=== PATIENT | female | born 1965 | race Asian ===

== ENCOUNTER → 2017-01-13 | Outpatient (CLI) | payer MEDICAID | LOC: WI 09:57 | PROVIDERS: ATTEND Family Medicine | DX: Z12.31 Encounter for screening mammogram for malignant neoplasm of breast (principal) | CPT/HCPCS: 77067; G0202 ==

== ENCOUNTER → 2018-01-21 | Outpatient (CLI) | payer MEDICAID ==
--- NOTE | 2018-01-21 14:04 | RADIOLOGY REPORT (SQ) ---
EXAM DESCRIPTION: L SPINE WHOLE COMPLETED DATE/TIME: 01/21/2018 1:29 pm REASON FOR STUDY: LOW BACK PAIN (M54.5) Z12.31 ENCNTR SCREEN MAMMOGRAM FOR MALIGNANT NEOPLASM OF BR E M54.5 LOW BACK PAIN COMPARISON: Lumbar spine five views 10/28/2011 NUMBER OF VIEWS: Five views including obliques. TECHNIQUE: AP, lateral, oblique, and sacral radiographic images acquired of the lumbar spine. LIMITATIONS: None. FINDINGS: MINERALIZATION: Normal. SEGMENTATION: Normal. No transitional anatomy. ALIGNMENT: Normal. VERTEBRAE: Maintained height. No fracture or worrisome bone lesion. DISCS: Mild disc space loss of height at L4-5 POSTERIOR ELEMENTS: Pedicles and facets are intact. No pars defect or posterior arch defects. Mild bilateral facet arthropathy at L3-4, L4-5, and L5-S1 HARDWARE: None in the spine. PARASPINAL SOFT TISSUES: Normal. PELVIS: Not in the field of view. SI joints unremarkable OTHER: No other significant finding. IMPRESSION: Mild lower lumbar degenerative changes TECHNICAL DOCUMENTATION: JOB ID: [id number]- All Rights Reserved Reading location - IP/workstation name: [email or web address]
--- NOTE | 2018-01-21 17:18 | WOMENS IMAGING REPORT ---
EXAM DESCRIPTION: BILAT SCREENING MAMMO W/CAD COMPLETED DATE/TIME: 01/21/2018 2:59 pm REASON FOR STUDY: SCREENING MAMMO Z12.31 ENCNTR SCREEN MAMMOGRAM FOR MALIGNANT NEOPLASM OF ANTHONY M54. 5 LOW BACK PAIN COMPARISON: Multiple since 2011 TECHNIQUE: Standard craniocaudal and mediolateral oblique views of each breast recorded using [employer] l acquisition. LIMITATIONS: None. FINDINGS: No masses, calcifications or architectural distortion. No areas of suspicion. Read with the assistance of CAD. .[facility] - R2 Cenova Version 1.3 .[facility] - R2 Cenova Version 1.3 .[facility] - R2 Cenova Version 2.4 .[facility] R2 Cenova Version 2.4 .[facility] - R2 [employer] Project Manager Version 9.2 IMPRESSION: NORMAL MAMMOGRAM. BIRADS 1. BREAST DENSITY: b. There are scattered areas of fibroglandular density. BIRAD: 1 NEGATIVE RECOMMENDATION: ROUTINE SCREENING COMMENT: The patient has been notified of the results by letter per [place] requirements. Additional no tification policies are in place for contacting patient with suspicious or incomplete findings. Quality ID #[id number]: The [employer] recommends an annual screening mammogram for women aged 40 years or over. This facility utilizes a reminder system to ensure that all patients receive reminder letters, and/or direct phone calls for appointments. This includes reminders for routine scr eening mammograms, diagnostic mammograms, or other Breast Imaging Interventions when appropriate. Th is patient will be placed in the appropriate reminder system. The [employer] (ACR) has developed recommendations for screening MRI of the breast s in certain patient populations, to be used in conjunction with mammography. Breast MRI surveillanc e may be appropriate for women with more than 20% lifetime risk of developing breast cancer as deter mined by genetic testing, significant family history of the disease, or history of mantle radiation f or Hodgkins Disease. ACR Practice Guidelines 2008. TECHNICAL DOCUMENTATION: FINDING NUMBER: (1) ASSESSMENT: (1) JOB ID: [id number] [employer]- All Rights Reserved Reading location - IP/workstation name: [facility]
== END ==
LOC: WI 10:25
PROVIDERS: ATTEND Family Medicine
DX: Z12.31 Encounter for screening mammogram for malignant neoplasm of breast (principal); M54.5 Low back pain
CPT/HCPCS: 72110; 77067

== ENCOUNTER → 2018-01-30 | Outpatient (CLI) | payer MEDICAID ==
[2018-01-30 08:48] LABS: ANION GAP 10 (5-19); BLOOD UREA NITROGEN 19 mg/dL (7-20); CALCIUM 10.1 mg/dL (8.4-10.2); CARBON DIOXIDE 30 mmol/L (22-30); CHLORIDE 103 mmol/L (98-107); CHOLESTEROL 199.49 mg/dL (0-200); GLUCOSE 103 mg/dL (75-110); POTASSIUM 4.5 mmol/L (3.6-5.0); TRIGLYCERIDES 170 mg/dL (<150)
[2018-01-30 08:59] LABS: DIRECT LDL 124 mg/dL (<100)
== END ==
LOC: LAB 08:08
PROVIDERS: ATTEND Family Medicine
DX: E03.9 Hypothyroidism, unspecified (principal); E78.2 Mixed hyperlipidemia; I10 Essential (primary) hypertension; Z79.899 Other long term (current) drug therapy
CPT/HCPCS: 36415; 80048; 80061; 83036; 84443

== ENCOUNTER → 2019-05-18 | Outpatient (CLI) | payer MEDICAID ==
[2019-05-18 10:45] LABS: ANION GAP 10 (5-19); BLOOD UREA NITROGEN 15 mg/dL (7-20); CARBON DIOXIDE 29 mmol/L (22-30); CHLORIDE 101 mmol/L (98-107); CHOLESTEROL 161.87 mg/dL (0-200); GLUCOSE 123 mg/dL (75-110); POTASSIUM 4.9 mmol/L (3.6-5.0); TRIGLYCERIDES 128 mg/dL (<150)
[2019-05-18 10:55] LABS: DIRECT LDL 98 mg/dL (<100)
== END ==
LOC: LAB 10:00
PROVIDERS: ATTEND Family Medicine
DX: E03.9 Hypothyroidism, unspecified (principal); E78.5 Hyperlipidemia, unspecified; I10 Essential (primary) hypertension; Z79.899 Other long term (current) drug therapy
CPT/HCPCS: 36415; 80048; 80061; 83036; 84443

== ENCOUNTER 2019-07-27 08:14 | Emergency (ER) | payer SELFPAY ==
--- NOTE | 2019-07-27 08:37 | ER Document Report ---
ED General - General Chief Complaint: Nausea/Vomiting Stated Complaint: COUGH Time Seen by Provider: 07/27/19 08:22 Primary Care Provider: DU HENDERSON MD [Primary Care Provider] - Follow up in 1 week Mode of Arrival: Ambulatory Information source: Patient, Relative Notes: This 54-year-old female with a history of high blood pressure hyperlipidemia and hypothyroidism presents emergency department with complaints of cough for the past 5 days. Reports producing yellow sputum yesterday. Also complains of vomiting due to force of cough that started last night. Reports she does not feel good body aches with a sore throat for the past 5 days. Unsure of fever. Denies diarrhea. Denies pain with void denies back pain, complaints of chest pain. Reports when she takes a deep breath she coughs more. TRAVEL OUTSIDE OF THE [place] IN LAST 30 DAYS: No - HPI Onset: Other Onset/Duration: Persistent Quality of pain: Achy Severity: Severe Pain Level: 5 Associated symptoms: Body/muscle aches, Productive cough, Vomiting Exacerbated by: Denies Relieved by: Denies Similar symptoms previously: No Recently seen / treated by doctor: No - Related Data Allergies/Adverse Reactions: No Known Allergies Allergy (Verified 07/27/19 08:14) Past Medical History - General Information source: Patient Last Menstrual Period: 3 months ago - Social History Smoking Status: Unknown if Ever Smoked Cigarette use (# per day): No Frequency of alcohol use: None Drug Abuse: None Lives with: Family Family History: Reviewed & Not Pertinent, CAD Patient has suicidal ideation: No Patient has homicidal ideation: No - Past Medical History Cardiac Medical History: Reports: Hx Hypercholesterolemia, Hx Hypertension Endocrine Medical History: Reports: Hx Hypothyroidism - Immunizations Hx Diphtheria, Pertussis, Tetanus Vaccination: Yes Review of Systems - Review of Systems Notes: Review HPI for review of systems., All other systems negative Physical Exam - Vital signs Vitals: Temp Pulse Resp BP Pulse Ox 97.8 F 84 18 143/69 H 95 07/27/19 08:18 07/27/19 08:18 07/27/19 08:18 07/27/19 08:18 07/27/19 08:18 - General General appearance: Alert In distress: None - HEENT Head: Normocephalic Eyes: Normal Conjunctiva: Normal Extraocular movements intact: Yes Ears: Normal External canal: Normal Tympanic membrane: Normal Nasal: Normal Mouth/Lips: Normal Mucous membranes: Moist Pharynx: Erythema. No: Peritonsillar abscess, Tonsillar hypertrophy Neck: Normal, Supple. No: Lymphadenopathy - Respiratory Respiratory status: No respiratory distress Chest status: Nontender Breath sounds: Normal. No: Wheezing Chest palpation: Normal - Cardiovascular Rhythm: Regular Heart sounds: Normal auscultation Murmur: No Normal capillary refill: Yes - Abdominal Inspection: Normal Distension: No distension Bowel sounds: Normal Tenderness: Nontender Organomegaly: No organomegaly - Back Back: No: CVA tenderness - Extremities General upper extremity: Normal ROM General lower extremity: Normal ROM - Neurological Neuro grossly intact: Yes Cognition: Normal Orientation: AAOx4 [place] Coma Scale Eye Opening: Spontaneous [place] Coma Scale Verbal: Oriented [place] Coma Scale Motor: Obeys Commands Vane Coma Scale Total: 15 Speech: Normal Cranial nerves: Normal - Psychological Associated symptoms: Normal affect, Normal mood - Skin Skin Temperature: Warm Skin Moisture: Dry Skin Color: Normal Course - Re-evaluation Re-evalutation: 07/27/19 09:33 This 54-year-old female presents with complaints of cough for the past 5 days. Reports cough is so forceful she is been vomiting afterwards occasionally. Reports she is producing yellow sputum yesterday. Denies fever diarrhea. 07/27/19 08:25 07/27/19 08:25 MCV 92 fl (80-97) 07/27/19 08:25 MCH 31.1 pg (27.0-33.4) 07/27/19 08:25 MCHC 34.0 g/dL (32.0-36.0) 07/27/19 08:25 RDW 13.1 % (11.5-14.0) 07/27/19 08:25 Seg Neutrophils % 68.7 % (42-78) 07/27/19 08:25 Chloride 98 mmol/L (98-107) 07/27/19 08:25 Carbon Dioxide 31 mmol/L (22-30) H 07/27/19 08:25 Anion Gap 10 (5-19) 07/27/19 08:25 Est GFR ( Amer) > 60 (>60) 07/27/19 08:25 Glucose 120 mg/dL (75-110) H 07/27/19 08:25 Calcium 9.7 mg/dL (8.4-10.2) 07/27/19 08:25 Total Bilirubin 0.5 mg/dL (0.2-1.3) 07/27/19 08:25 AST 26 U/L (14-36) 07/27/19 08:25 Alkaline Phosphatase 96 U/L (38-126) 07/27/19 08:25 Total Protein 8.3 g/dL (6.3-8.2) H 07/27/19 08:25 Albumin 4.8 g/dL (3.5-5.0) 07/27/19 08:25 Urine Color YELLOW 07/27/19 09:07 Urine Appearance CLEAR 07/27/19 09:07 Urine pH 6.0 (5.0-9.0) 07/27/19 09:07 Ur Specific [place] 1.012 07/27/19 09:07 Urine Protein NEGATIVE mg/dL (NEGATIVE) 07/27/19 09:07 Urine Glucose (UA) NEGATIVE mg/dL (NEGATIVE) 07/27/19 09:07 Urine Ketones NEGATIVE mg/dL (NEGATIVE) 07/27/19 09:07 Urine Blood SMALL (NEGATIVE) H 07/27/19 09:07 Urine Nitrite NEGATIVE (NEGATIVE) 07/27/19 09:07 Ur Leukocyte Esterase LARGE (NEGATIVE) H 07/27/19 09:07 Urine WBC (Auto) 10 /HPF 07/27/19 09:07 Urine RBC (Auto) 1 /HPF 07/27/19 09:07 Chest X-Ray 07/27/19 08:28 IMPRESSION: Minimal lingular airspace disease atelectasis versus pneumonia 07/27/19 10:41 No vomiting since arrival labs unremarkable x-ray shows atelectasis versus pneumonia we will treat for pneumonia. Patient was instructed on plan of care. Instructed on throat lozenges warm salt water gargles for throat. Instructed on [employer]. She verbalized understanding to all directions. - Vital Signs Vital signs: Temp Pulse Resp BP Pulse Ox 97.7 F 85 18 127/73 H 95 07/27/19 09:45 07/27/19 09:45 07/27/19 09:45 07/27/19 09:45 07/27/19 08:18 - Laboratory Result Diagrams: 07/27/19 08:25 07/27/19 08:25 Laboratory results interpreted by me: 07/27/19 07/27/19 07/27/19 08:25 08:25 09:07 Eos % (Auto) 6.8 H Absolute Eos (auto) 0.7 H Carbon Dioxide 31 H Glucose 120 H Total Protein 8.3 H Urine Blood SMALL H Ur Leukocyte Esterase LARGE H - Diagnostic Test Radiology reviewed: Image reviewed, Reports reviewed Discharge - Discharge Clinical Impression: Cough Pneumonia Qualifiers: Pneumonia type: due to unspecified organism Laterality: unspecified laterality Lung location: unspecified part of lung Qualified Code(s): J18.9 - Pneumonia, unspecified organism Condition: Stable Disposition: HOME, SELF-CARE Instructions: Azithromycin ([facility]), Pneumonia ([facility]) Additional Instructions: *You have been evaluated for cough , pneumonia *Increase fluid intake as discussed *Take medication as prescribed *Monitor your temperature, take Tylenol as indicated *Follow up with a primary care provider within one week *Return to ED for worsening condition, changes, needs, fever Prescriptions: Azithromycin [Zithromax 250 mg Tablet] 250 mg PO ASDIR PRN #6 tablet PRN Reason: Forms: Elevated Blood Pressure Referrals: DU HENDERSON MD [Primary Care Provider] - Follow up in 1 week
[2019-07-27 08:43] LABS: ABSOLUTE BASOPHILS # (AUTO) 0.1 10^3/uL (0.0-0.2); ABSOLUTE EOSINOPHILS # (AUTO) 0.7 10^3/uL (0.0-0.6); ABSOLUTE LYMPHOCYTES (AUTO) 1.7 10^3/uL (0.5-4.7); ABSOLUTE MONOCYTES (AUTO) 0.6 10^3/uL (0.1-1.4); ABSOLUTE NEUT (AUTO) 6.6 10^3/uL (1.7-8.2); BASOPHILS % (AUTO) 0.7 % (0-2); EOSINOPHILS % (AUTO) 6.8 % (0-6); HEMATOCRIT 40.9 % (36.0-47.0); HEMOGLOBIN 13.9 g/dL (12.0-15.5); LYMPHOCYTES % (AUTO) 17.8 % (13-45); MEAN CORPUSCULAR HEMOGLOBIN 31.1 pg (27.0-33.4); MEAN CORPUSCULAR VOLUME 92 fl (80-97); PLATELET COUNT 301 10^3/uL (150-450); RED BLOOD COUNT 4.46 10^6/uL (3.72-5.28); RED CELL DISTRIBUTION WIDTH 13.1 % (11.5-14.0); SEGMENTED NEUTROPHILS % (AUTO) 68.7 % (42-78); TOTAL CELLS COUNTED % (AUTO) 100 %; WHITE BLOOD COUNT 9.6 10^3/uL (4.0-10.5)
--- NOTE | 2019-07-27 08:58 | RADIOLOGY REPORT (SQ) ---
EXAM DESCRIPTION: CHEST 2 VIEWS COMPLETED DATE/TIME: 07/27/2019 8:49 am REASON FOR STUDY: cough COMPARISON: Chest film 07/14/2013 EXAM PARAMETERS: NUMBER OF VIEWS: two views TECHNIQUE: Digital Frontal and Lateral radiographic views of the chest acquired. RADIATION DOSE: NA LIMITATIONS: none FINDINGS: LUNGS AND PLEURA: Minimal lingular airspace disease is present along the left heart border , likely atelectasis. Early or developing pneumonia could not be excluded. No pleural effusions. No pneumothorax. MEDIASTINUM AND HILAR STRUCTURES: No masses or contour abnormalities. HEART AND VASCULAR STRUCTURES: Heart normal size. No evidence for failure. BONES: No acute findings. HARDWARE: None in the chest. OTHER: No other significant finding. IMPRESSION: Minimal lingular airspace disease atelectasis versus pneumonia TECHNICAL DOCUMENTATION: JOB ID: [id number] [email or web address]- All Rights Reserved Reading location - IP/workstation name: [email or web address]
[2019-07-27 09:04] LABS: ALBUMIN 4.8 g/dL (3.5-5.0); ALKALINE PHOSPHATASE 96 U/L (38-126); ANION GAP 10 (5-19); ASPARTATE AMINO TRANSFERASE 26 U/L (14-36); BILIRUBIN,DIRECT 0.3 mg/dL (0.0-0.4); BILIRUBIN,TOTAL 0.5 mg/dL (0.2-1.3); BLOOD UREA NITROGEN 12 mg/dL (7-20); CALCIUM 9.7 mg/dL (8.4-10.2); CARBON DIOXIDE 31 mmol/L (22-30); CHLORIDE 98 mmol/L (98-107); GLUCOSE 120 mg/dL (75-110); POTASSIUM 3.8 mmol/L (3.6-5.0); TOTAL PROTEIN 8.3 g/dL (6.3-8.2)
[2019-07-27 09:27] LABS: APPEARANCE,URINE CLEAR; BILIRUBIN,URINE NEGATIVE (NEGATIVE); COLOR,URINE YELLOW; GLUCOSE, URINE NEGATIVE (NEGATIVE); KETONES,URINE NEGATIVE (NEGATIVE); LEUKOCYTE ESTERASE,URINE LARGE (NEGATIVE); NITRITE,URINE NEGATIVE (NEGATIVE); PROTEIN,URINE NEGATIVE (NEGATIVE); URINE SPECIFIC GRAVITY 1.012; UROBILINOGEN,URINE NEGATIVE mg/dL (<2.0)
[2019-07-27 09:47] VITALS: BP 127/73
== END 2019-07-27 10:12 | disposition home or self-care (01) ==
LOC: ER 08:14
DX: J18.9 Pneumonia, unspecified organism (principal); R11.2 Nausea with vomiting, unspecified; M79.10 Myalgia, unspecified site; I10 Essential (primary) hypertension; E78.5 Hyperlipidemia, unspecified; E03.9 Hypothyroidism, unspecified
CPT/HCPCS: 36415; 71046; 80053; 81001; 81025; 85025; 87070; 87880; 99283

== ENCOUNTER → 2019-08-19 | Outpatient (CLI) | payer OTHER ==
--- NOTE | 2019-08-20 12:21 | WOMENS IMAGING REPORT ---
EXAM DESCRIPTION: PINK WARRIOR BILATERAL SCREEN COMPLETED DATE/TIME: 08/19/2019 2:14 pm REASON FOR STUDY: PINK PINK PINK Z12.31 SCREENING MAMMO PINK PINK PINK Z12.31 ENCNTR SCREEN MAMMOGR AM FOR MALIGNANT NEOPLASM OF ANTHONY COMPARISON: Multiple since 2011 EXAM PARAMETERS: Standard craniocaudal and mediolateral oblique views of each breast recorded using digital acquisition. Read with the assistance of CAD. .[facility] - [employer] Body Engineer Version 9.2 LIMITATIONS: None. FINDINGS: No suspicious masses, suspicious calcifications or architectural distortion. No areas of c oncern. IMPRESSION: Negative MAMMOGRAM. BIRADS 1 BREAST DENSITY: b. There are scattered areas of fibroglandular density. BIRAD: ASSESSMENT: 1 NEGATIVE RECOMMENDATION: ROUTINE SCREENING COMMENT: The patient has been notified of the results by letter per MQSA requirements. Additional no tification policies are in place for contacting patient with suspicious or incomplete findings. Quality ID #[id number]: The [employer] [employer] recommends an annual screening mammogram for women aged 40 years or over. This facility utilizes a reminder system to ensure that all patients receive reminder letters, and/or direct phone calls for appointments. This includes reminders for routine scr eening mammograms, diagnostic mammograms, or other Breast Imaging Interventions when appropriate. Th is patient will be placed in the appropriate reminder system. TECHNICAL DOCUMENTATION: FINDING NUMBER: (1) ASSESSMENT: (1) JOB ID: [id number] [employer]- All Rights Reserved Reading location - IP/workstation name: [email or web address]
== END ==
LOC: WI 13:45
PROVIDERS: ATTEND Family Medicine
DX: Z12.31 Encounter for screening mammogram for malignant neoplasm of breast (principal)
CPT/HCPCS: 77067

== ENCOUNTER 2019-12-12 13:47 | Emergency (ER) | payer OTHER ==
[2019-12-12] MEDS ORDERED: NORMAL SALINE 1000 ML 1,000 ML IV ONE (13:59)
--- NOTE | 2019-12-12 14:01 | ER Document Report ---
ED Medical Screen (RME) - General Chief Complaint: Cold Symptoms Stated Complaint: HEADACHE Time Seen by Provider: 12/12/19 13:52 Primary Care Provider: DU HENDERSON MD [Primary Care Provider] - Follow up as needed Information source: Patient Notes: Patient presents complaining of body aches, sore throat and headache for the past 4 days. Patient has had nausea and vomiting off and on. Patient denies any diarrhea. Patient states that she has numbness to the fingers of bilateral hands today. Patient reports history of hypertension, dyslipidemia, anxiety. I have greeted and performed a rapid initial assessment of this patient. A comprehensive ED assessment and evaluation of the patient, analysis of test results and completion of the medical decision making process will be conducted by additional ED providers. TRAVEL OUTSIDE OF THE [place] IN LAST 30 DAYS: No - Related Data Allergies/Adverse Reactions: No Known Allergies Allergy (Verified 12/12/19 13:49) Past Medical History - Past Medical History Cardiac Medical History: Reports: Hx Hypercholesterolemia, Hx Hypertension Endocrine Medical History: Reports: Hx Hypothyroidism - Immunizations Hx Diphtheria, Pertussis, Tetanus Vaccination: Yes Physical Exam - Vital signs Vitals: Temp Pulse Resp BP Pulse Ox 98.0 F 66 16 131/75 H 100 12/12/19 13:51 12/12/19 13:51 12/12/19 13:51 12/12/19 13:51 12/12/19 13:51 - General General appearance: Appears well, Alert In distress: None - Neurological [place] Coma Scale Eye Opening: Spontaneous [place] Coma Scale Verbal: Oriented Vane Coma Scale Motor: Obeys Commands Vane Coma Scale Total: 15 Course - Vital Signs Vital signs: Temp Pulse Resp BP Pulse Ox 98.0 F 66 16 131/75 H 100 12/12/19 13:51 12/12/19 13:51 12/12/19 13:51 12/12/19 13:51 12/12/19 13:51 Doctor's Discharge - Discharge Referrals: DU HENDERSON MD [Primary Care Provider] - Follow up as needed
[2019-12-12 14:22] LABS: ABSOLUTE BASOPHILS # (AUTO) 0.1 10^3/uL (0.0-0.2); ABSOLUTE EOSINOPHILS # (AUTO) 0.5 10^3/uL (0.0-0.6); ABSOLUTE LYMPHOCYTES (AUTO) 2.2 10^3/uL (0.5-4.7); ABSOLUTE MONOCYTES (AUTO) 0.4 10^3/uL (0.1-1.4); ABSOLUTE NEUT (AUTO) 3.6 10^3/uL (1.7-8.2); BASOPHILS % (AUTO) 1.1 % (0-2); EOSINOPHILS % (AUTO) 6.6 % (0-6); HEMATOCRIT 40.1 % (36.0-47.0); HEMOGLOBIN 13.6 g/dL (12.0-15.5); LYMPHOCYTES % (AUTO) 32.8 % (13-45); MEAN CORPUSCULAR HEMOGLOBIN 31.7 pg (27.0-33.4); MEAN CORPUSCULAR VOLUME 93 fl (80-97); MONOCYTES % (AUTO) 6.1 % (3-13); PLATELET COUNT 315 10^3/uL (150-450); RED CELL DISTRIBUTION WIDTH 12.9 % (11.5-14.0); SEGMENTED NEUTROPHILS % (AUTO) 53.4 % (42-78); TOTAL CELLS COUNTED % (AUTO) 100 %; WHITE BLOOD COUNT 6.8 10^3/uL (4.0-10.5)
[2019-12-12] MEDS ORDERED: KETOROLAC TROMETHAMINE INJ/PF 30 MG/1 ML SDV IV ONE (14:36)
[2019-12-12 14:40] LABS: ALBUMIN 4.5 g/dL (3.5-5.0); ALKALINE PHOSPHATASE 77 U/L (38-126); ANION GAP 9 (5-19); ASPARTATE AMINO TRANSFERASE 27 U/L (14-36); BILIRUBIN,DIRECT 0.3 mg/dL (0.0-0.4); BILIRUBIN,TOTAL 0.4 mg/dL (0.2-1.3); BLOOD UREA NITROGEN 12 mg/dL (7-20); CALCIUM 9.6 mg/dL (8.4-10.2); CARBON DIOXIDE 30 mmol/L (22-30); CHLORIDE 102 mmol/L (98-107); CREATINE KINASE 98 U/L (30-135); GLUCOSE 98 mg/dL (75-110); POTASSIUM 3.7 mmol/L (3.6-5.0)
--- NOTE | 2019-12-12 14:44 | ER Document Report ---
ED General - General Chief Complaint: Cold Symptoms Stated Complaint: HEADACHE Time Seen by Provider: 12/12/19 13:52 Primary Care Provider: DU HENDERSON MD [Primary Care Provider] - Follow up as needed Notes: CHIEF COMPLAINT: Flu symptoms HPI: 54-year-old female presenting to the emergency department complaining of flu symptoms over the last 4 days. Patient states she had 1 day and evening of vomiting where she threw up 2 or 3 times. Has not had vomiting since then. Denies abdominal pain. Denies dysuria. Has a slight dry cough. No shortness of breath no chest pain. No headache. Mild sore throat and nasal congestion. Patient states she started having numbness tingling in both hands yesterday which concerned her and brought her to the emergency department. Patient has been able to tolerate oral fluids today. ROS: See HPI - all other systems were reviewed and are otherwise negative Constitutional: no fever Eyes: no drainage, no blurred vision ENT: + runny nose, + sore throat Cardiovascular: no chest pain Resp: no SOB, + cough GI: + vomiting, no diarrhea, no abdominal pain : no dysuria Integumentary: no rash Allergy: no hives Musculoskeletal: no extremity pain or swelling Neurological: + numbness/tingling, no weakness MEDICATIONS: I agree with the patient medications as charted by the RN. ALLERGIES: I agree with the allergies as charted by the RN. PAST MEDICAL HISTORY/PAST SURGICAL HISTORY: Reviewed and agree as charted by RN. SOCIAL HISTORY: Reviewed and agree as charted by RN. FAMILY HISTORY: No significant familial comorbid conditions directly related to patient complaint EXAM: Reviewed vital signs as charted by RN. CONSTITUTIONAL: Alert and oriented and responds appropriately to questions. Well-appearing; well-nourished. No acute distress HEAD: Normocephalic; atraumatic EYES: PERRL; Conjunctivae clear, sclerae non-icteric ENT: normal nose; no rhinorrhea; moist mucous membranes; pharynx without lesions noted, no uvula edema or deviation, no tonsillar hypertrophy, phonation normal NECK: Supple without meningismus; non-tender; no cervical lymphadenopathy, no masses CARD: RRR; no murmurs, no clicks, no rubs, no gallops; symmetric distal pulses RESP: Normal chest excursion without splinting or tachypnea; breath sounds clear and equal bilaterally; no wheezes, no rhonchi, no rales, pulse oximetry 100% on room air not hypoxic ABD/GI: Normal bowel sounds; non-distended; soft, non-tender, no rebound, no guarding; no palpable organomegaly or masses. BACK: The back appears normal and is non-tender to palpation, there is no CVA tenderness EXT: Normal ROM in all joints; non-tender to palpation; no cyanosis, no effusions, no edema SKIN: Normal color for age and race; warm; dry; good turgor; no acute lesions noted NEURO: Moves all extremities equally; Motor and sensory function intact PSYCH: The patient's mood and manner are appropriate. Grooming and personal hygiene are appropriate. MDM: 54-year-old female presenting for flulike symptoms over the last 4 days. Initially some vomiting no vomiting in the last 3 days. No abdominal pain on exam. Not hypoxic. Not significantly tachycardic. Subjective tingling in bilateral fingers. No chest pain to suggest ACS. Initial screening labs and hydration ordered through triage process. Will add chest x-ray given the dry cough to evaluate for infiltrate. I suspect this is likely a viral syndrome. TRAVEL OUTSIDE OF THE [place] IN LAST 30 DAYS: No - Related Data Allergies/Adverse Reactions: No Known Allergies Allergy (Verified 12/12/19 13:49) Past Medical History - General Information source: Patient - Social History Smoking Status: Never Smoker Family History: Reviewed & Not Pertinent, CAD Patient has suicidal ideation: No Patient has homicidal ideation: No - Past Medical History Cardiac Medical History: Reports: Hx Hypercholesterolemia, Hx Hypertension Endocrine Medical History: Reports: Hx Hypothyroidism - Immunizations Hx Diphtheria, Pertussis, Tetanus Vaccination: Yes Physical Exam - Vital signs Vitals: Temp Pulse Resp BP Pulse Ox 98.0 F 66 16 131/75 H 100 12/12/19 13:51 12/12/19 13:51 12/12/19 13:51 12/12/19 13:51 12/12/19 13:51 Course - Re-evaluation Re-evalutation: 12/12/19 15:53 Lab work did not show acute emergent abnormalities. Chest x-ray does not show evidence of pneumonia on my review. Patient still complaining of some numbness in the bilateral hands. She has no chest pain or shortness of breath suggesting ACS or endocarditis or myocarditis. This may be radicular or simply myalgia from the viral process that she has ongoing at this time. Patient will follow- up closely with her primary care provider in 1 to 2 days. - Vital Signs Vital signs: Temp Pulse Resp BP Pulse Ox 98.0 F 66 16 131/75 H 100 12/12/19 13:51 12/12/19 13:51 12/12/19 13:51 12/12/19 13:51 12/12/19 13:51 - Laboratory Result Diagrams: 12/12/19 14:02 12/12/19 14:02 Laboratory results interpreted by me: 12/12/19 14:02 Eos % (Auto) 6.6 H Discharge - Discharge Clinical Impression: Influenza-like illness, Numbness and tingling in both hands Condition: Stable Disposition: HOME, SELF-CARE Additional Instructions: Continue to hydrate well at home. Continue Motrin Tylenol for body ache. Lab work and imaging studies today did not show acute emergent abnormalities. Follow-up closely with your primary care provider in 1 to 2 days for recheck and reevaluation of symptoms Referrals: DU HENDERSON MD [Primary Care Provider] - Follow up as needed
--- NOTE | 2019-12-12 15:42 | RADIOLOGY REPORT (SQ) ---
EXAM DESCRIPTION: CHEST 2 VIEWS COMPLETED DATE/TIME: 12/12/2019 3:31 pm REASON FOR STUDY: cough COMPARISON: Chest x-ray 07/27/2019, 07/14/2013. EXAM PARAMETERS: NUMBER OF VIEWS: two views TECHNIQUE: Digital Frontal and Lateral radiographic views of the chest acquired. RADIATION DOSE: NA LIMITATIONS: none FINDINGS: LUNGS AND PLEURA: No consolidation, pneumothorax or pleural effusion. MEDIASTINUM AND HILAR STRUCTURES: No masses or contour abnormalities. HEART AND VASCULAR STRUCTURES: Heart normal size. No evidence for failure. BONES: No acute findings. HARDWARE: None in the chest. IMPRESSION: NO ACUTE RADIOGRAPHIC FINDING IN THE CHEST. TECHNICAL DOCUMENTATION: JOB ID: [id number] [employer]- All Rights Reserved Reading location - IP/workstation name: [email or web address]
[2019-12-12 16:27] VITALS: BP 132/66
== END 2019-12-12 16:26 | disposition home or self-care (01) ==
LOC: ER 13:47
DX: J11.1 Influenza due to unidentified influenza virus with other respiratory manifestations (principal); R20.2 Paresthesia of skin; R20.0 Anesthesia of skin; R05 Cough; J02.9 Acute pharyngitis, unspecified; R09.81 Nasal congestion; I10 Essential (primary) hypertension
CPT/HCPCS: 99283; 96361; 96374; 36415; 87070; 87880; 82550; 83690; 85025; 87077; 80053; 71046; J1885; J7030

== ENCOUNTER 2020-08-15 13:05 | Emergency (ER) | payer SELFPAY ==
[2020-08-15 13:22] VITALS: BP 151/74
[2020-08-15] MEDS ORDERED: ALPRAZOLAM 0.5 MG TABLET PO ONE (15:10)
--- NOTE | 2020-08-15 15:20 | ER Document Report ---
HPI - HPI Time Seen by Provider: 08/15/20 14:59 Pain Level: Denies Notes: 55-year-old female presents to the emergency room for a generic Xanax refill because she ran out of insurance and [facility] for her. Patient has a prescription for 180 mg tablets a month, she usually fills every other month. MEDICATIONS: I agree with the patient medications as charted by the RN. ALLERGIES: I agree with the allergies as charted by the RN. PAST MEDICAL HISTORY/PAST SURGICAL HISTORY: Reviewed and agree as charted by RN. SOCIAL HISTORY: Reviewed and agree as charted by RN. FAMILY HISTORY: No significant familial comorbid conditions directly related to patient complaint EXAM: Reviewed vital signs as charted by RN. REVIEW OF SYSTEMS:reviewed vital signs by RN CONSTITUTIONAL : Denies fever, chills, or sweats. Denies recent illness. EENT: Denies eye, ear, throat, or mouth pain or symptoms. Denies nasal or sinus congestion or discharge. Denies throat, tongue, or mouth swelling or difficulty swallowing. CARDIOVASCULAR: Denies chest pain. Denies palpitations or racing or irregular heart beat. Denies ankle edema. RESPIRATORY: Denies cough, cold, or chest congestion. Denies shortness of breath, difficulty breathing, or wheezing. GASTROINTESTINAL: Denies abdominal pain or distention. Denies nausea, vomiting, or diarrhea. Denies blood in vomitus, stools, or per rectum. Denies black, tarry stools. Denies constipation. GENITOURINARY: Denies difficulty urinating, painful urination, burning, frequency, blood in urine, or discharge. FEMALE GENITOURINARY: Denies vaginal bleeding, heavy or abnormal periods, irre gular periods. Denies vaginal discharge or odor. MUSCULOSKELETAL: Denies back or neck pain or stiffness. Denies joint pain or swelling. SKIN: Denies rash, lesions or sores. HEMATOLOGIC : Denies easy bruising or bleeding. LYMPHATIC: Denies swollen, enlarged glands. NEUROLOGICAL: Denies confusion or altered mental status. Denies passing out or loss of consciousness. Denies dizziness or lightheadedness. Denies headache. Denies weakness or paralysis or loss of use of either side. Denies problems with gait or speech. Denies sensory loss, numbness, or tingling. Denies seizures. PSYCHIATRIC: Denies anxiety or stress. Denies depression, suicidal ideation, or homicidal ideation. ALL OTHER SYSTEMS REVIEWED AND NEGATIVE. PHYSICAL EXAMINATION: GENERAL: Well-appearing, well-nourished and in no acute distress. HEAD: Atraumatic, normocephalic. EYES: Pupils equal round and reactive to light, extraocular movements intact, conjunctiva are normal. ENT: Nares patent, oropharynx clear without exudates. Moist mucous membranes. NECK: Normal range of motion, supple without lymphadenopathy LUNGS: Breath sounds clear to auscultation bilaterally and equal. No wheezes rales or rhonchi. HEART: Regular rate and rhythm without murmurs ABDOMEN: Soft, nontender, nondistended abdomen. No guarding, no rebound. No masses appreciated. Female : deferred Musculoskeletal: Normal range of motion, no pitting or edema. No cyanosis. NEUROLOGICAL: Cranial nerves grossly intact. Normal speech, normal gait. Normal sensory, motor exams PSYCH: Normal mood, normal affect. SKIN: Warm, Dry, normal turgor, no rashes or lesions noted. Dictation was performed using [employer] voice recognition software - REPRODUCTIVE Reproductive: DENIES: : Past Medical History - General Information source: Patient - Social History Smoking Status: Never Smoker Frequency of alcohol use: None Drug Abuse: None Family History: Reviewed & Not Pertinent, CAD - Past Medical History Cardiac Medical History: Reports: Hx Hypercholesterolemia, Hx Hypertension Endocrine Medical History: Reports: Hx Hypothyroidism - Immunizations Hx Diphtheria, Pertussis, Tetanus Vaccination: Yes Vertical Provider Document - CONSTITUTIONAL Agree With Documented VS: Yes Exam Limitations: No Limitations General Appearance: WD/WN - INFECTION CONTROL TRAVEL OUTSIDE OF THE [place] IN LAST 30 DAYS: No Course - Re-evaluation Re-evalutation: 08/15/20 19:16 Afebrile vital stable no distress. Nurses notes reviewed. Discussed with [facility] about generic Xanax, she states that [facility]odiazepines. Discussed with patient that I cannot prescribe her the quantity of Xanax that she would like we can start her on BuSpar though to help with benzodiazepine withdrawal as as well as starting her on Vistaril to manage her anxiety. We did give her information to [facility] without the information for number and address for her to contact them as well as the hours in the phone number. Patient was agreeable with this plan of care and verbalized understanding of this plan of care. Discussed with patient that if she starts to have any benzodiazepine withdrawal is to return to the emergency room. After performing a Medical Screening Examination, I estimate there is LOW risk for RUPTURED ESOPHAGUS, PNEUMOTHORAX, PULMONARY EMBOLISM, ACUTE CORONARY SYNDROME, OR THORACIC AORTIC DISSECTION, thus I consider the discharge disposition reasonable. I have reevaluated this patient multiple times and no significant life threatening changes are noted. The patient and I have discussed the diagnosis and risks, and we agree with discharging home with close follow-up. We also discussed returning to the Emergency Department immediately if new or worsening symptoms occur. We have discussed the symptoms which are most concerning (e.g., bloody sputum, worsening pain or shortness of breath) that necessitate immediate return. - Vital Signs Vital signs: Temp Pulse Resp BP Pulse Ox 97.9 F 78 16 151/74 H 97 08/15/20 13:20 08/15/20 13:20 08/15/20 13:20 08/15/20 13:20 08/15/20 13:20 Discharge - Discharge Clinical Impression: Anxiety Condition: Stable Disposition: HOME, SELF-CARE Instructions: Anxiety ([facility]) Additional Instructions: [facility] with [facility] for further evaluation of your need for Xanax. Please take Vistaril and please start taking the BuSpar to prevent any benzodiazepine withdrawals. You were given information about [facility] from the mental health team. Please return to the emergency room if you experience any benzodiazepine withdrawals. Return immediately for any new or worsening symptoms. Follow up with primary care provider, call tomorrow to make followup appointment. Prescriptions: Hydroxyzine Pamoate [Vistaril] 50 mg PO Q6HP PRN #30 capsule PRN Reason: Buspirone HCl [Buspar 10 mg Tablet] 5 mg PO BID #30 tablet Referrals: VIRGILIO ROLLINS MD [ACTIVE STAFF] - Follow up as needed DU HENDERSON MD [Primary Care Provider] - Follow up as needed [facility] [Provider Group] - Follow up as needed [facility] [Outside] - Follow up as needed
== END 2020-08-15 16:12 | disposition home or self-care (01) ==
LOC: ER 13:05
DX: F41.9 Anxiety disorder, unspecified (principal); E78.00 Pure hypercholesterolemia, unspecified; I10 Essential (primary) hypertension
CPT/HCPCS: 99283

== ENCOUNTER 2020-08-18 01:39 | Emergency (ER) | payer SELFPAY ==
[2020-08-18 03:40] LABS: ABSOLUTE BASOPHILS # (AUTO) 0.1 10^3/uL (0.0-0.2); ABSOLUTE EOSINOPHILS # (AUTO) 0.2 10^3/uL (0.0-0.6); ABSOLUTE LYMPHOCYTES (AUTO) 2.3 10^3/uL (0.5-4.7); ABSOLUTE MONOCYTES (AUTO) 0.5 10^3/uL (0.1-1.4); ABSOLUTE NEUT (AUTO) 6.7 10^3/uL (1.7-8.2); EOSINOPHILS % (AUTO) 2.2 % (0-6); HEMATOCRIT 42.2 % (36.0-47.0); HEMOGLOBIN 14.6 g/dL (12.0-15.5); LYMPHOCYTES % (AUTO) 23.1 % (13-45); MEAN CORPUSCULAR HEMOGLOBIN 31.8 pg (27.0-33.4); MEAN CORPUSCULAR HGB CONC 34.6 g/dL (32.0-36.0); MEAN CORPUSCULAR VOLUME 92 fl (80-97); PLATELET COUNT 358 10^3/uL (150-450); RED BLOOD COUNT 4.59 10^6/uL (3.72-5.28); RED CELL DISTRIBUTION WIDTH 13.1 % (11.5-14.0); SEGMENTED NEUTROPHILS % (AUTO) 68.7 % (42-78); TOTAL CELLS COUNTED % (AUTO) 100 %; WHITE BLOOD COUNT 9.8 10^3/uL (4.0-10.5)
[2020-08-18 04:08] LABS: ALKALINE PHOSPHATASE 92 U/L (38-126); ANION GAP 13 (5-19); ASPARTATE AMINO TRANSFERASE 30 U/L (14-36); BILIRUBIN,DIRECT 0.2 mg/dL (0.0-0.4); BILIRUBIN,TOTAL 0.6 mg/dL (0.2-1.3); BLOOD UREA NITROGEN 13 mg/dL (7-20); CALCIUM 9.9 mg/dL (8.4-10.2); CARBON DIOXIDE 24 mmol/L (22-30); CHLORIDE 102 mmol/L (98-107); CREATINE KINASE 81 U/L (30-135); GLUCOSE 138 mg/dL (75-110); POTASSIUM 4.2 mmol/L (3.6-5.0); TOTAL PROTEIN 8.5 g/dL (6.3-8.2)
--- NOTE | 2020-08-18 04:17 | RADIOLOGY REPORT (SQ) ---
EXAM DESCRIPTION: XR CHEST 2 VIEWS COMPLETED DATE/TME: 08/18/2020 00:00 CLINICAL HISTORY: 55 years, Female, chest pain COMPARISON: 12/12/2019 NUMBER OF VIEWS: Two TECHNIQUE: Two views of the chest LIMITATIONS: None. FINDINGS: The lungs are clear. The heart is normal in size. No pneumothorax or pleural effusion. No acute fracture. IMPRESSION: No acute cardiopulmonary abnormality. copyright 2010 [employer]- All Rights Reserved
[2020-08-18 04:20] LABS: CREATINE KINASE MB 0.25 ng/mL (<4.55)
[2020-08-18 04:21] LABS: TROPONIN I < 0.012 ng/mL
--- NOTE | 2020-08-18 08:18 | ER Document Report ---
ED General - General Chief Complaint: Anxiety Stated Complaint: CHEST TIGHTNESS LEFT ARM TINGLING Time Seen by Provider: 08/18/20 07:52 TRAVEL OUTSIDE OF THE [place] IN LAST 30 DAYS: No - HPI Notes: Chief complaint: Anxiety and chest tightness History of present illness: 55-year-old female presents for evaluation of recurrent episodes of anxiety and chest tightness over the past 2 weeks. Patient had been previously followed by Dr. Barney and apparently was on Xanax long-term for anxiety more than several years. She was apparently dismissed from that practice for reasons which are unclear and subsequently got an appointment at [facility]. They were unwilling to refill her Xanax so she is been out of this medicine for about 2 weeks. She was seen here 3 days ago by midlevel provider requesting Xanax. They chose not to honor this request and gave her a prescription for BuSpar and hydroxyzine. She says these medicines are not helping. She states now that she is having recurrent episodes of what she perceives to be panic attacks similar to what she had prior to initiation of treatment with Xanax. She describes momentary episodes of vague central chest tightness without radiation. This is nonexertional. No associated nausea, vomiting or diaphoresis. She has no known history of cardiac disease. Patient denies any abuse of drugs or alcohol. She denies any suicidal/homicidal ideation. She denies any auditory or visual hallucinations. Family history is positive for CAD. Patient has a history of hypertension and is taking combination hydrochlorothiazide lisinopril. She also has a history of hypothyroidism and is taking an unknown dose of Synthroid. She has a history of hyperlipidemia. She is a non-smoker. HEART Score: HISTORY 0 ECG 0 AGE 1 RISK FACTORS 1 TROPONIN 0 TOTAL: 2 If HEART score is < or = 3 AND both tronponin measurments are normal, the 30 day risk of a major adverse cardiac event (all-cause mortality, myocardia infarction or need for coronary revscularization) is < 1% (Sensitivity 100%, NPV 100%). - Related Data Allergies/Adverse Reactions: No Known Allergies Allergy (Verified 12/12/19 13:49) Home Medications: hydroxyzine, buspar, lisinopril/hctz Past Medical History - General Information source: Patient, Relative - Social History Smoking Status: Never Smoker Frequency of alcohol use: None Drug Abuse: None Family History: Reviewed & Not Pertinent, CAD - Past Medical History Cardiac Medical History: Reports: Hx Hypercholesterolemia, Hx Hypertension Denies: Hx Coronary Artery Disease, Hx DVT, Hx Heart Attack, Hx Pulmonary Embolism Endocrine Medical History: Reports: Hx Hypothyroidism Psychiatric Medical History: Reports: Hx Anxiety Past Surgical History: Reports: None - Immunizations Hx Diphtheria, Pertussis, Tetanus Vaccination: Yes Review of Systems - Review of Systems Notes: Constitutional: Negative for fever. HENT: Negative for sore throat. Eyes: Negative for visual changes. Cardiovascular: As per HPI. Respiratory: Negative for shortness of breath. Gastrointestinal: Negative for abdominal pain, vomiting or diarrhea. Genitourinary: Negative for dysuria. Musculoskeletal: Negative for back pain. Skin: Negative for rash. Neurological: Negative for headaches, weakness or numbness. 10 point ROS negative except as marked above and in HPI. Physical Exam - Vital signs Vitals: Temp Pulse Resp BP Pulse Ox 97.9 F 90 16 176/81 H 98 08/18/20 01:44 08/18/20 01:44 08/18/20 01:44 08/18/20 01:44 08/18/20 01:44 - Notes Notes: GENERAL: Slender female of approximately stated age appearing in no acute distress. SKIN: Good turgor no rashes. HEAD: Normocephalic atraumatic. EYES: PERRLA. EOMI. Conjunctivae and sclerae clear. EARS: CANALS AND TMS CLEAR. NOSE: CLEAR. MOUTH: Moist mucosa. Good dentition. No stridor or edema. No drooling. NECK: Supple. No masses or thyromegaly. No adenopathy. Carotids 2+ without bruits. No JVD. BACK: Symmetrical without tenderness. CHEST: Respirations unlabored. Breath sounds clear and symmetrical. HEART: Regular rhythm. No murmur gallop or rub. ABDOMEN: Soft nontender without masses, organomegaly or rebound. Bowel sounds normally active. No bruits. GENITALIA: Deferred. EXTREMITIES: No edema. No calf tenderness. Cap refill less than 1.5 seconds. Dorsalis pedis and posterior tibial pulses 3+ and symmetrical. NEUROLOGICAL: GCS 15. Alert and oriented x3. Normal gait. Fluent speech. Cranial nerves II through XII intact. Sensorimotor and cerebellar normal. Normal tone. PSYCHIATRIC: Slightly anxious. Course - Re-evaluation Re-evalutation: 08/18/20 11:17 Troponin x2 3 hours apart negative. No acute changes on EKG. Heart score is less than 3. Normal TSH. Patient has recently abruptly stopped Xanax which she has been on for years. Her current symptoms sound like combination of panic attacks and benzodiazepine withdrawal. I am going to write Ativan for the patient so she can see her primary care physician. Findings, clinical impression and plan of treatment have been discussed with patient/family. Understanding of current findings and recommendations has been acknowledged by them and there is agreement regarding disposition and follow-up. - Vital Signs Vital signs: Temp Pulse Resp BP Pulse Ox 98.2 F 72 16 150/72 H 98 08/18/20 05:27 08/18/20 05:27 08/18/20 01:44 08/18/20 05:27 08/18/20 05:27 - Laboratory Result Diagrams: 08/18/20 03:20 08/18/20 03:20 Laboratory results interpreted by me: 08/18/20 03:20 Glucose 138 H Total Protein 8.5 H - EKG Interpretation by Me Additional EKG results interpreted by me: 08/18/20 08:19 Twelve-lead EKG reviewed by me contemporaneously: 0154 hrs. Indication for study: Chest pain Rhythm: Normal sinus Rate: 74 Intervals:Normal [place]: -[address]/T wave changes: None Comparison with prior tracing: None Interpretation: Left anterior fascicular block Discharge - Discharge Clinical Impression: Anxiety Chest pain Qualifiers: Chest pain type: unspecified Qualified Code(s): R07.9 - Chest pain, unspecified Benzodiazepine withdrawal Qualifiers: Complication of substance-induced condition: uncomplicated Qualified Code(s): F13.230 - Sedative, hypnotic or anxiolytic dependence with withdrawal, uncomplicated Condition: Stable Disposition: HOME, SELF-CARE Prescriptions: Lorazepam [Ativan 1 mg Tablet] 1 mg PO TID 7 Days #21 tab Referrals: [facility] [Provider Group] - Follow up as needed
[2020-08-18 09:48] LABS: URINE AMPHETAMINES SCREEN NEGATIVE; URINE BARBITURATES SCREEN NEGATIVE; URINE COCAINE SCREEN NEGATIVE; URINE MARIJUANA (THC) SCREEN NEGATIVE; URINE METHADONE SCREEN NEGATIVE; URINE PHENCYCLIDINE SCREEN NEGATIVE
[2020-08-18 09:53] LABS: URINE BENZODIAZEPINES SCREEN UNCONFIRMED POSITIVE
[2020-08-18 11:17] VITALS: BP 147/82
--- NOTE | 2020-08-18 21:35 | EKG REPORT ---
SEVERITY:- ABNORMAL ECG - SINUS RHYTHM PROBABLE LEFT ATRIAL ABNORMALITY LEFT ANTERIOR FASCICULAR BLOCK LEFT VENTRICULAR HYPERTROPHY : Confirmed by: Traci Martino MD 18-Aug-2020 21:33:46
== END 2020-08-18 11:24 | disposition home or self-care (01) ==
LOC: ER 01:39
DX: F41.9 Anxiety disorder, unspecified (principal); F13.230 Sedative, hypnotic or anxiolytic dependence with withdrawal, uncomplicated; R07.89 Other chest pain; I44.4 Left anterior fascicular block; I10 Essential (primary) hypertension; E03.9 Hypothyroidism, unspecified; Z79.899 Other long term (current) drug therapy
CPT/HCPCS: 36415; 71046; 80053; 80307; 82550; 82553; 84443; 84484; 85025; 93005; 93010; 99285